=== PATIENT | female | born 1970 | race Caucasian/White ===

== ENCOUNTER 2025-07-21 11:00 | Outpatient (CLI) | payer OTHER | END 2025-07-21 11:01 | disposition home or self-care (01) | LOC: PET 11:00 | PROVIDERS: ATTEND Internal Medicine | DX: C80.0 Disseminated malignant neoplasm, unspecified (principal); R91.8 Other nonspecific abnormal finding of lung field; N94.89 Other specified conditions associated with female genital organs and menstrual cycle; C79.89 Secondary malignant neoplasm of other specified sites | CPT/HCPCS: 78815; A9552 ==

== ENCOUNTER 2025-07-27 13:17 | Day surgery (SDC) | payer OTHER ==
[2025-07-27] MEDS ORDERED: Lidocaine 1% PF 5 ML VIAL ONE (13:31)
[2025-07-27] MEDS ORDERED: Sodium Bicarbonate 2.5 MEQ/5 ML SDV ONE (13:32)
[2025-07-27 13:45] LABS: #Basophils 0.15 10x3/uL (0.0-0.2); #Eosinophils 0.24 10x3/uL (0.0-0.7); #Monocytes 1.30 10x3/uL (0.11-0.59); #Neutrophils 5.80 10x3/uL (1.40-6.50); %Basophils 1.6 % (0.0-1.0); %Eosinophils 2.6 % (0.0-10.0); %Lymphocytes 17.4 % (21.0-51.0); %Monocytes 14.1 % (0.0-10.0); %Neutrophils 63.2 % (42.0-75.0); Hematocrit 33.0 % (36.0-47.0); Hemoglobin 9.4 g/dL (12.0-16.0); Mean Corpuscular Hemoglobin 19.4 pg (27.0-31.0); Mean Corpuscular Volume 68.0 fL (78.0-98.0); Platelet Count 449 10x3/uL (130-400); Red Blood Cell (RBC) Count 4.85 mill/uL (4.20-5.40); White Blood Cell (WBC) Count 9.19 10x3/uL (4.8-10.8)
[2025-07-27 13:57] LABS: INR-International Normal Ratio 1.1; PTT 35.6 sec (22.9-36.1); Prothrombin Time 14.6 sec (12.0-14.7)
[2025-07-27 14:30] LABS: Anisocytosis MODERATE=16-30 cells HPF (0-5); Macrocytosis SLIGHT = 6-15 cells HPF (0-5); Microcytosis MODERATE=15-30 cells HPF (0-5); Ovalocytes SLIGHT = 2-5 cells HPF (0-1); Platelet Adequacy Comment Platelets Increased; Polychromasia MODERATE = 3-4 cells HPF (0-2); Schistocytes SLIGHT = 2-5 cells HPF (0-1)
== END 2025-07-27 15:14 | disposition home or self-care (01) ==
LOC: ULT 13:17
PROVIDERS: ATTEND Internal Medicine
PROC: 0JB93ZX Excision of Buttock Subcutaneous Tissue and Fascia, Percutaneous Approach, Diagnostic (ICD-10-PCS; principal; 2025-07-27)
DX: C85.16 Unspecified B-cell lymphoma, intrapelvic lymph nodes (principal); I10 Essential (primary) hypertension; Z79.899 Other long term (current) drug therapy
CPT/HCPCS: 20206; 36415; 76942; 85025; 85610; 85730; 88184; 88305; 88333; 88334; 88341; 88342; 88365